=== PATIENT | male | born 1980 ===

== ENCOUNTER → 2020-05-29 09:30 | Outpatient (BNVA) | payer SELFPAY | PROVIDERS: Visit Provider Nurse Practitioner Family | DX: Z11.3 Encounter for screening for infections with a predominantly sexual mode of transmission (principal) | CPT/HCPCS: 80053; 80061; 82607; 83735; 84443; 85025; 86592; 86705; 86706; 86709; 86803; 87340; 87491; 87591; 87661; 87806 ==

== ENCOUNTER 2020-07-09 15:15 | Outpatient (CLI) | payer SELFPAY ==
--- NOTE | 2020-07-09 15:00 | US_ITS ---
WS: [id number] INDICATION: Palpable mass left side of neck TECHNIQUE: Ultrasound soft tissue area of concern FINDINGS: Ultrasound soft tissue area of concern left neck. Elongated ovoid lymph node with normal fa tty hilum. Lymph node measures approximately 1.0 x 2.2 x 0.3 CM. This has a benign appearance and is likely reactive. US/US soft tissue head neck [id number] IMPRESSION: Elongated ovoid lymph node with normal fatty hilum in the area of c oncern measuring 1.0 x 2.2 x 0.3cm
== END 2020-07-09 15:16 | disposition home or self-care (01) ==
LOC: RAD 15:19
PROVIDERS: PCP Nurse Practitioner Family; Visit Provider Nurse Practitioner Family
DX: R22.1 Localized swelling, mass and lump, neck
CPT/HCPCS: 76536

== ENCOUNTER → 2024-02-08 13:28 | Outpatient (BNVA) | payer OTHER, SELFPAY | PROVIDERS: PCP Nurse Practitioner Family; Visit Provider Nurse Practitioner Family | DX: Z13.6 Encounter for screening for cardiovascular disorders (principal); G43.009 Migraine without aura, not intractable, without status migrainosus; M79.601 Pain in right arm | CPT/HCPCS: 80053; 80061; 82607; 83735; 84443; 85025 ==

== ENCOUNTER 2024-10-12 08:20 | Emergency (ER) | payer BC, MEDICAID, SELFPAY ==
[2024-10-12 08:20] VITALS: BP 116/63; PULSE 71; RESP 12; TEMP 36.6; O2SAT 96
[2024-10-12 08:24] VITALS: BP 116/63; PULSE 65; RESP 17; O2SAT 96
[2024-10-12 08:30] VITALS: BP 116/63; PULSE 76; O2SAT 97
--- NOTE | 2024-10-12 08:45 | ED_ITS ---
HPI - Abdominal Pain 2 General: Chief Complaint: Abdominal Pain Stated Complaint: left flank pain Time Seen by Provider: 10/12/24 08:35 History of Present Illness: 44-year-old male presents emergency room with complaint of left flank pain began suddenly this morning denies any dysuria urgency or frequency. He has not had any hematuria. No history of nephrolithiasis in the past she did receive pain medications and route from EMS states this pain is pretty much resolved at this point Associated Symptoms: Denies chills, dysuria and fever(s) Related Data Home Medications Medication Instructions Recorded Confirmed ibuprofen 200 mg tablet (Advil) 600 mg PO Q6H PRN Pain 10/12/24 10/12/24 Previous Rx's Medication Instructions Recorded rizatriptan 10 mg tablet (Maxalt) See Rx Instructions PO .COMPLEX 02/08/24 #10 tabs Allergies Allergy/AdvReac Type Severity Reaction Status Date / Time acetaminophen [From Tylenol] Allergy Unknown Verified 10/12/24 08:26 Review of Systems 2 Const: Denies: fever(s) or chills Card: Denies: chest pain Resp: Denies: dyspnea GI: Denies: abdominal pain : Reports: flank pain; Denies: dysuria, urinary frequency or urinary urgency Musc: Denies: neck pain or back pain Skin/Breast: Denies: rash PFSH ED 2 PFSH: Medical History (Updated 10/12/24 @ 10:01 by Mich Celeste DO) No pertinent past medical history Surgical History Hx of hernia repair Social History Smoking and tobacco/nicotine status: current every day tobacco/nicotine user cigarettes Packs smoked per day: 1 Years cigarettes smoked: 15 Second hand smoke exposure: Yes Alcohol intake: never Substance/Drug Use: never Lives independently: Yes Household members: significant other Marital status: Life Partner service: Yes branch: [employer] Current occupational status: employed Current occupation: [employer] Current gender identity: Male Physical Exam 2 Const: ORIENTATION/CONSCIOUSNESS: Yes awake, Yes oriented to person, Yes oriented to place and Yes oriented to time HENMT: COMMON NORMALS: normocephalic, atraumatic and hearing grossly normal bilaterally HEAD & SCALP: normocephalic and atraumatic Resp: COMMON NORMALS: normal respiratory effort, No retractions, No use of accessory muscles and clear to auscultation bilaterally AUSCULTATION: clear to auscultation bilaterally Cardio: COMMON NORMALS: regular rate, regular rhythm and No murmurs present (Cardio) RATE: regular rate RHYTHM: regular rhythm GI: COMMON NORMALS: Soft to palpation and No hepatosplenomegaly present A USCULTATION: Yes normoactive bowel sounds PALPATION: Yes Soft to palpation, No Tenderness to palpation present (GI), No Guarding due to palpation present (GI) and Yes No hepatosplenomegaly present Extremity: COMMON NORMALS: normal to inspection, capillary refill normal, no clubbing, cyanosis or edema, no calf tenderness and no pedal edema Neuro: SENSORIUM/ORIENTATION: Yes oriented to person, Yes oriented to place and Yes oriented to time Skin: COMMON NORMALS: no rashes or lesions noted GENERAL SKIN EXAM: no rashes or lesions noted Course 2 Vital Signs: Vital signs: Vital Signs Temperature 97.9 F 10/12/24 08:20 Pulse Rate 80 10/12/24 10:11 Respiratory Rate 17 10/12/24 08:24 Blood Pressure 118/70 10/12/24 10:11 Pulse Oximetry 97 10/12/24 10:11 Oxygen Delivery Me thod Room Air 10/12/24 08:20 MDM - Abdominal Pain Medical Decision Making Hematuria with signs of hydronephrosis no signs of nephrolithiasis suspect patient has already passed a stone. His symptoms have resolved will discharge patient home have him strain his urine to follow-up with his primary care doctor return if has worsening or changes symptoms Medical Records I reviewed the patient's medical records. Lab Data I reviewed the patient's lab results. 10/12/24 08:49 10/12/24 08:49 Labs/Radiology: Radiology Impressions Abdomen/Pelvis CT 10/12/24 08:56 IMPRESSION: 1. No renal obstruction or hydronephrosis. 2. Bilateral nonobstructing renal calculi. 3. Small extrarenal pelvis versus minimal hydronephrosis on the LEFT. No associated calyceal dilatation. May potentially be residual mild hydronephrosis from passed stone. No ureteral calcifications identified. 4. Normal appendix. 5. No ascites. Laboratory Results WBC 10.18 10^3/uL (3.29-11.43) 10/12/24 08:49 RBC 4.85 10^6/uL (3.85-5.65) 10/12/24 08:49 Hgb 14.70 g/dL (11.27-16.99) 10/12/24 08:49 Hct 43.4 % (37-53) 10/12/24 08:49 MCV 89.5 fl (82-101) 10/12/24 08:49 MCH 30.3 pg (27-33) 10/12/24 08:49 MCHC 33.9 g/dL (30-55) 10/12/24 08:49 RDW 12.4 % (12.1-15.1) 10/12/24 08:49 Plt Count 233 10^3/cmm (157-399) 10/12/24 08:49 MPV 9.8 fL (7.4-10.4) 10/12/24 08:49 Neut % (Auto) 78.0 % 10/12/24 08:49 Lymph % (Auto) 12.9 % 10/12/24 08:49 [place] % (Auto) 5.6 % 10/12/24 08:49 Eos % (Auto) 2.3 % 10/12/24 08:49 Baso % (Auto) 0.7 % 10/12/24 08:49 Neut # (Auto) 7.95 10^3/uL (1.8-7.7) H 10/12/24 08:49 Lymph # (Auto) 1.3 10^3/uL (0.8-4.8) 10/12/24 08:49 [place] # (Auto) 0.6 10^3/uL (0.2-0.9) 10/12/24 08:49 Eos # (Auto) 0.2 10^3/uL (0.0-0.8) 10/12/24 08:49 Baso # (Auto) 0.1 10^3/uL (0.0-0.1) 10/12/24 08:49 Nucleated RBC % (auto) 0 % 10/12/24 08:49 Nucleated RBCs # 0.0 /100WBC 10/12/24 08:49 Sodium 136 mmol/L (136-145) 10/12/24 08:49 Potassium 3.4 mmol/L (3.5-5.1) L 10/12/24 08:49 Chloride 104 mmol/L (98-107) 10/12/24 08:49 Carbon Dioxide 22 mmol/L (22-29) 10/12/24 08:49 Anion Gap 13.4 (5-19) 10/12/24 08:49 BUN 9 mg/dL (6-20) 10/12/24 08:49 Creatinine 1.0 mg/dL (0.7-1.2) 10/12/24 08:49 GFR Calculation 80.8 mL/min (90-130) L 10/12/24 08:49 Glucose 135 mg/dL (65-115) H 10/12/24 08:49 Calculated Osmolality 283 mOsm/kg (285-295) L 10/12/24 08:49 Calcium 8.6 mg/dL (8.5-10.5) 10/12/24 08:49 Total Bilirubin 0.3 mg/dL (0.15-1.2) 10/12/24 08:49 AST 17 U/L (0-40) 10/12/24 08:49 ALT 26 U/L (0-41) 10/12/24 08:49 Alkaline Phosphatase 82 U/L (40-130) 10/12/24 08:49 Total Protein 6.4 g/dL (6.6-8.7) L 10/12/24 08:49 Albumin 3.9 g/dL (3.5-5.2) 10/12/24 08:49 Globulin 2.5 g/dL (1.3-4.6) 10/12/24 08:49 Urine Color Yellow (Yellow) 10/12/24 08:32 Urine Appearance Clear (CLEAR) 10/12/24 08:32 Urine pH 5.5 (5-7) 10/12/24 08:32 Ur Specific [place] 1.017 (1.005-1.030) 10/12/24 08:32 Urine Protein Trace (Negative) A 10/12/24 08:32 Urine Glucose (UA) Negative (Normal) 10/12/24 08:32 Urine Ketones Negative (Negative) 10/12/24 08:32 Urine Blood 3+ (Negative) A 10/12/24 08:32 Urine Nitrate Negative (Negative) 10/12/24 08:32 Urine Bilirubin Negative (Negative) 10/12/24 08:32 Urine Urobilinogen 1.0 mg/dL (Negative) 10/12/24 08:32 Ur Leukocyte Esterase Negative (Negative) 10/12/24 08:32 Urine RBC >100 /hpf (0-2) H 10/12/24 08:32 Urine WBC 0-5 /hpf (0-5) 10/12/24 08:32 Ur Squamous Epith Cells 0-5 /hpf (0-5) 10/12/24 08:32 Amorphous Sediment Not Reportable 10/12/24 08:32 Urine Bacteria None seen /hpf (NONE) 10/12/24 08:32 Hyaline Casts 0.81 /lpf 10/12/24 08:32 All radiology interpretation(s) finalized by discharge Discharge Plan Discharge Patient Disposition: Home Clinical Impression: Left nephrolithiasis Condition: Stable Prescriptions: No Action rizatriptan [Maxalt] 10 mg tablet See Rx Instructions PO .COMPLEX Qty: 10 2RF Rx Instructions: take 1 tab at onset of headache; if no relief may repeat 1 tab after at least 2 hrs; max = 3 tabs/24 hr PO ibuprofen [Advil] 200 mg Tablet 600 mg PO Q6H PRN (Reason: Pain) Discharge Orders: Discharge ED (Routine); Ordered 10/12/24 Ordered By: Mich Celeste Referrals: Barbara Manley FNP [Primary Care Provider] - Discharge Diet: Usual diet Discharge Activity: Resume usual activity Patient Instructions: Kidney Stones (ED), How to Strain Your Urine (ED), Opioid Safety, Pain Management Activity Restrictions/Additional Instructions: Thank you for choosing [facility] for your healthcare needs today. It is very important that you follow up as instructed or that you return to the Emergency Department should you have concerns or if your condition changes or worsens in any way. Seen in the emergency room with complaint of sudden onset of left flank pain. Based on the labs and imaging done it appears you had a kidney stone that is already passed to the bladder. Recommend straining a urine to see if his kidney stone can be retrieved for analyzing. There is no other kidney stones in the ureter at this time. 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
[2024-10-12 08:49] LABS: Bilirubin Urine Negative (Negative); Blood Urine 3+ (Negative); Glucose Urine UA Negative (Normal); Ketones Urine Negative (Negative); Leukocyte Esterase Urine Negative (Negative); Nitrate Urine Negative (Negative); Protein Urine Trace (Negative); Specific Gravity, Urine 1.017 (1.005-1.030); Urine Appearance Clear (CLEAR); Urine Color Yellow (Yellow); pH Urine 5.5 (5-7)
[2024-10-12 08:53] LABS: Basophils # 0.1 10^3/uL (0.0-0.1); Basophils % 0.7 %; Eosinophils # 0.2 10^3/uL (0.0-0.8); Eosinophils % 2.3 %; Hematocrit 43.4 % (37-53); Lymphocytes # 1.3 10^3/uL (0.8-4.8); Lymphocytes % 12.9 %; Mean Corpuscular HGB Conc 33.9 g/dL (30-55); Mean Corpuscular Hemoglobin 30.3 pg (27-33); Mean Corpuscular Volume 89.5 fl (82-101); Mean Platelet Volume 9.8 fL (7.4-10.4); Monocytes # 0.6 10^3/uL (0.2-0.9); Monocytes % 5.6 %; Neutrophils # 7.95 10^3/uL (1.8-7.7); Nucleated Red Blood Cells % 0 %; Platelet Count 233 10^3/cmm (157-399); Red Blood Count 4.85 10^6/uL (3.85-5.65); Red Cell Distribution Width 12.4 % (12.1-15.1); White Blood Count 10.18 10^3/uL (3.29-11.43)
[2024-10-12 08:54] LABS: Add Urine Microscopic? YES; Bacteria Urine None Seen /hpf; Hyaline Casts Urine 0.81 /lpf; RBC Urine >100 /hpf (0-2); Squamous Epithelial Cell Urine 0-5 /hpf (0-5); WBC Urine 0-5 /hpf (0-5)
--- NOTE | 2024-10-12 08:56 | CT_ITS ---
WS: [id number] CT ABDOMEN AND PELVIS NONCONTRAST HISTORY: flank pain, LEFT TECHNIQUE: Imaging performed through the abdomen and pelvis. Coronal and sagittal reformats are submi tted. All CT scans at [facility] use at least one of these dose optimization techniques: auto mated exposure control; mA and/or kV adjustment per patient size (includes targeted exams where dose is matched to clinical indication); or iterative reconstruction. DLP: 454.08 mGy.cm COMPARISON: None available. Lower thorax: Lung bases are clear. Visualized heart is normal. No hiatal hernia. Liver: Normal size liver. No mass or bile duct dilatation. Gallbladder: Normal gallbladder. No pericholecystic fluid or cholelithiasis. No gallbladder wall thic kening. Pancreas: Normal size and attenuation. Normal pancreatic duct. No pancreatitis or mass. Spleen: Normal. Adrenal glands: Normal. No mass. Right kidney: Normal size kidney with no mass or hydronephrosis. Nonobstructing calcification upper p ole measures 4.2 mm. Left kidney: Normal size kidney with no perinephric stranding. There is a small extrarenal pelvis sulema danna resolving minimal hydronephrosis. Normal size ureter. Nonobstructing calcification lower pole silvio sures 5 mm. Aorta: Normal abdominal aorta, no aneurysm or atherosclerosis. No free fluid, intraperitoneal air or significant lymphadenopathy. GI tract: Normal noncontrast imaging of the stomach, small bowel and colon. No obstruction or wall th ickening. Normal appendix. Appendix is measuring top normal size. Appendix does contain air and there is no adjacent inflammation. Abdominal wall: Small umbilical hernia contains fat only. Pelvis: No free fluid or adenopathy. Minimally distended urinary bladder. No calcifications in the ur inary bladder. Osseous structures: Unremarkable. CT/CT kidney stone [id number] IMPRESSION: 1. No renal obstruction or hydronephrosis. 2. Bilateral nonobstructing renal calculi. 3. Small extrarenal pelvis versus minimal hydronephrosis on the LEFT. No assoc iated calyceal dilatation. May potentially be residual mild hydronephrosis from passed stone. No ureteral calcifications identified. 4. Normal appendix. 5. No ascites.
[2024-10-12 09:00] VITALS: BP 111/71; PULSE 72; O2SAT 95
[2024-10-12 09:10] LABS: Alanine Aminotransferase 26 U/L (0-41); Albumin Level 3.9 g/dL (3.5-5.2); Alkaline Phosphatase 82 U/L (40-130); Anion Gap 13.4 (5-19); Aspartate Amino Transferase 17 U/L (0-40); Blood Urea Nitrogen 9 mg/dL (6-20); Calcium 8.6 mg/dL (8.5-10.5); Carbon Dioxide 22 mmol/L (22-29); Chloride 104 mmol/L (98-107); Creatinine Clr Calc Pharmacy 96.6683; Globulin 2.5 g/dL (1.3-4.6); Glomerular Filtration Rate 80.8 mL/min (90-130); Glucose 135 mg/dL (65-115); Osmolality Calculated 283 mOsm/kg (285-295); Potassium 3.4 mmol/L (3.5-5.1); Sodium 136 mmol/L (136-145); Total Bilirubin 0.3 mg/dL (0.15-1.2); Total Protein 6.4 g/dL (6.6-8.7)
[2024-10-12 09:16] LABS: Add Urine Culture? Yes
[2024-10-12 10:11] VITALS: BP 118/70; PULSE 80; O2SAT 97
== END 2024-10-12 10:13 | disposition home or self-care (01) ==
PROVIDERS: Emergency Provider Family Medicine; PCP Nurse Practitioner Family
DX: N20.0 Calculus of kidney (principal); F17.210 Nicotine dependence, cigarettes, uncomplicated
CPT/HCPCS: 74176; 80053; 81001; 85025; 87086; 99284

== ENCOUNTER 2025-01-06 08:54 | Emergency (ER) | payer BC, MEDICAID, SELFPAY ==
[2025-01-06 09:00] VITALS: BP 146/81; PULSE 61; RESP 18; TEMP 36.7; O2SAT 96; BMI 26.6
--- NOTE | 2025-01-06 09:01 | CTR_ITS ---
PROCEDURE INFORMATION: Exam: CT Abdomen And Pelvis Without Contrast Exam date and time: 01/06/2025 9:30 AM Age: 44 years old Clinical indication: Abdominal pain; Flank; Right; Additional info: R flank pain TECHNIQUE: Imaging protocol: Computed tomography of the abdomen and pelvis without contrast. Radiation optimization: All CT scans at this facility use at least one of these dose optimization techniques: automated exposure control; mA and/or kV adjustment per patient size (includes targeted exams where dose is matched to clinical indication); or iterative reconstruction. COMPARISON: CT kidney stone [id number] 10/12/2024 9:15 AM RADIATION DOSE METRICS: Total DLP (mGy-cm): 467.19 FINDINGS: Diaphragm: Small hiatal hernia. Liver: Normal. No mass. Gallbladder and biliary ducts: Normal. No calcified stones. No ductal dilation. Pancreas: Normal. No ductal dilation. Spleen: Normal. No splenomegaly. Adrenal glands: Normal. No mass. Kidneys and ureters: left distal ureteral 3 mm stone. No hydronephrosis or hydroureter seen on the left side. There is a right proximal 2 mm obstructing ureteral stone associated with mild hydronephrosis and right perinephric stranding changes. Stomach and bowel: diffuse scattered colonic diverticulosis. No dilated small bowel loop. Appendix: Appendix is normal. Intraperitoneal space: Unremarkable. No free air. No significant fluid collection. Vasculature: Unremarkable. No abdominal aortic aneurysm. Lymph nodes: Unremarkable. No enlarged lymph nodes. Urinary bladder: Unremarkable as visualized. Reproductive: Unremarkable as visualized. Bones/joints: Intervertebral disc narrowing at L5-S1 level. Soft tissues: Unremarkable. CT/CT kidney stone [id number] IMPRESSION: 1. Right proximal 2 mm obstructing ureteral stone associated with mild hydronephrosis. 2. Left distal ureteral 3 mm stone. This does not appear to cause obstruction. 3. Small hiatal hernia. 4. Diffuse scattered colonic diverticulosis. 5. Intervertebral disc narrowing at L5-S1 level.
--- NOTE | 2025-01-06 09:01 | ED_ITS ---
HPI - Abdominal Pain 2 General: Chief Complaint: Abdominal Pain Stated Complaint: right flank pain Time Seen by Provider: 01/06/25 08:56 Source: patient Mode of arrival: ambulatory Limitations: no limitations History of Present Illness: 44-year-old male who states that he has had right flank pain since yesterday. States been a sharp pain rates 9-10 states had some problems urinating along with vomiting as well. He denies any worsening improving factors he had had a history of kidney stone in the past denies any abdominal pain. Denies any testicle pain Associated Symptoms: Reports nausea and vomiting; Denies chills, diarrhea, dysuria and fever(s) Related Data Previous Rx's ?Medication ?Instructions ?Recorded hydrocodone 5 mg-acetaminophen 325 1 tab PO Q6H PRN pa in #14 tabs 01/06/25 mg tablet ondansetron 4 mg disintegrating 4 mg PO Q6H PRN nausea and 01/06/25 tablet vomiting #14 tabs tamsulosin 0.4 mg capsule (Flomax) 0.4 mg PO DAILY #5 caps 01/06/25 Allergies Allergy/AdvReac Type Severity Reaction Status Date / Time acetaminophen (From Tylenol) Allergy Unknown Verified 10/12/24 08:26 Review of Systems 2 Const: Denies: fever(s), chills, body aches or change in appetite ENMT: Denies: throat pain or dental pain Card: Denies: chest pain Resp: Denies: dyspnea GI: Reports: nausea and vomiting; Denies: abdominal pain or diarrhea : Reports: flank pain; Denies: dysuria Musc: Denies: neck pain or back pain Skin/Breast: Denies: rash Neuro: Denies: headache(s) PFSH ED 2 PFSH: Medical History (Updated 01/06/25 @ 10:20 by Tushar Lopez MD) No pertinent past medical history Surgical History Hx of hernia repair Social History Smoking and tobacco/nicotine status: current every day tobacco/nicotine user cigarettes Packs smoked per day: 1 Years cigarettes smoked: 15 Second hand smoke exposure: Yes Alcohol intake: never Substance/Drug Use: never Lives independently: Yes Household members: significant other Marital status: Life Partner service: Yes branch: [employer] Current occupational status: employed Current occupation: [employer] Current gender identity: Male Physical Exam 2 Const: COMMON NORMALS: no acute distress, patient oriented x3 and healthy appearing HENMT: COMMON NORMALS: normocephalic and atraumatic HEAD & SCALP: n ormocephalic and atraumatic Eye: COMMON NORMALS: conjunctivae normal CONJUNCTIVA: Yes conjunctivae normal Neck/C-Spine: COMMON NORMALS: full ROM and supple Chest: COMMONS NORMALS: normal inspection of the chest Resp: COMMON NORMALS: normal respiratory effort Cardio: COMMON NORMALS: regular rate, regular rhythm and No murmurs present (Cardio) RATE: regular rate RHYTHM: regular rhythm GI: COMMON NORMALS: Normal to inspection, nondistended, normoactive bowel sounds present, Soft to palpation, non-tender and no masses PALPATION: Yes Soft to palpation Back/Pelvis: OTHER: Tenderness noted to right lower back Extremity: COMMON NORMALS: normal to inspection and full ROM Neuro: COMMON NORMALS: patient oriented x3, moves all extremities and no focal motor deficits Psych: COMMON NORMALS: mental status grossly normal, Normal thought process present and cooperative THOUGHT PROCESS: Normal thought process present Skin: COMMON NORMALS: no rashes or lesions noted and no wounds GENERAL SKIN EXAM: no rashes or lesions noted Course 2 Vital Signs: Vital signs: Vital Signs Temperature 98.0 F 01/06/25 09:00 Pulse Rate 52 L 01/06/25 09:21 Respiratory Rate 18 01/06/25 09:00 Blood Pressure 148/81 01/06/25 09:21 Pulse Oximetry 98 01/06/25 09:21 Oxygen Delivery Me thod Room Air 01/06/25 09:21 MDM - Abdominal Pain Medical Decision Making Patient presents here with kidney stone CT scan here shows a stone his pain is much improved he has no signs UTI we will give him follow-up with urology will DC him with a strainer along with pain meds he is to follow-up and return if worsening. Medical Records I reviewed the patient's medical records. Lab Data I reviewed the patient's lab results. 01/06/25 09:04 01/06/25 09:04 Labs/Radiology: Radiology Impressions Abdomen/Pelvis CT 01/06/25 09:01 IMPRESSION: 1. Right proximal 2 mm obstructing ureteral stone associated with mild hydronephrosis. 2. Left distal ureteral 3 mm stone. This does not appear to cause obstruction. 3. Small hiatal hernia. 4. Diffuse scattered colonic diverticulosis. 5. Intervertebral disc narrowing at L5-S1 level. Laboratory Results WBC 14.87 10^3/uL (3.29-11.43) H 01/06/25 09:04 RBC 5.03 10^6/uL (3.85-5.65) 01/06/25 09:04 Hgb 15.30 g/dL (11.27-16.99) 01/06/25 09:04 Hct 44.1 % (37-53) 01/06/25 09:04 MCV 87.7 fl (82-101) 01/06/25 09:04 MCH 30.4 pg (27-33) 01/06/25 09:04 MCHC 34.7 g/dL (30-55) 01/06/25 09:04 RDW 12.8 % (12.1-15.1) 01/06/25 09:04 Plt Count 312 10^3/cmm (157-399) 01/06/25 09:04 MPV 9.8 fL (7.4-10.4) 01/06/25 09:04 Neut % (Auto) 75.7 % 01/06/25 09:04 Lymph % (Auto) 16.7 % 01/06/25 09:04 [place] % (Auto) 5.8 % 01/06/25 09:04 Eos % (Auto) 0.8 % 01/06/25 09:04 Baso % (Auto) 0.7 % 01/06/25 09:04 Neut # (Auto) 11.25 10^3/uL (1.8-7.7) H 01/06/25 09:04 Lymph # (Auto) 2.5 10^3/uL (0.8-4.8) 01/06/25 09:04 [place] # (Auto) 0.9 10^3/uL (0.2-0.9) 01/06/25 09:04 Eos # (Auto) 0.1 10^3/uL (0.0-0.8) 01/06/25 09:04 Baso # (Auto) 0.1 10^3/uL (0.0-0.1) 01/06/25 09:04 Nucleated RBC % (auto) 0 % 01/06/25 09:04 Nucleated RBCs # 0.0 /100WBC 01/06/25 09:04 Sodium 141 mmol/L (136-145) 01/06/25 09:04 Potassium 3.7 mmol/L (3.5-5.1) 01/06/25 09:04 Chloride 107 mmol/L (98-107) 01/06/25 09:04 Carbon Dioxide 21 mmol/L (22-29) L 01/06/25 09:04 Anion Gap 16.7 (5-19) 01/06/25 09:04 BUN 15 mg/dL (6-20) 01/06/25 09:04 Creatinine 1.0 mg/dL (0.7-1.2) 01/06/25 09:04 GFR Calculation 80.8 mL/min (90-130) L 01/06/25 09:04 Glucose 127 mg/dL (65-115) H 01/06/25 09:04 Calculated Osmolality 294 mOsm/kg (285-295) 01/06/25 09:04 Calcium 9.5 mg/dL (8.5-10.5) 01/06/25 09:04 Total Bilirubin 0.6 mg/dL (0.15-1.2) 01/06/25 09:04 AST 19 U/L (0-40) 01/06/25 09:04 ALT 23 U/L (0-41) 01/06/25 09:04 Alkaline Phosphatase 81 U/L (40-130) 01/06/25 09:04 Total Protein 7.5 g/dL (6.6-8.7) 01/06/25 09:04 Albumin 4.5 g/dL (3.5-5.2) 01/06/25 09:04 Globulin 3.0 g/dL (1.3-4.6) 01/06/25 09:04 Lipase 15 U/L (13-60) 01/06/25 09:04 Urine Color Yellow (Yellow) 01/06/25 09:46 Urine Appearance Clear (CLEAR) 01/06/25 09:46 Urine pH 5.5 (5-7) 01/06/25 09:46 Ur Specific [place] 1.020 (1.005-1.030) 01/06/25 09:46 Urine Protein Trace (Negative) A 01/06/25 09:46 Urine Glucose (UA) Negative (Normal) 01/06/25 09:46 Urine Ketones Trace (Negative) 01/06/25 09:46 Urine Blood 3+ (Negative) A 01/06/25 09:46 Urine Nitrate Negative (Negative) 01/06/25 09:46 Urine Bilirubin Negative (Negative) 01/06/25 09:46 Urine Urobilinogen 1.0 mg/dL (Negative) 01/06/25 09:46 Ur Leukocyte Esterase Negative (Negative) 01/06/25 09:46 Urine RBC 21-50 /hpf (0-2) H 01/06/25 09:46 Urine WBC 0-5 /hpf (0-5) 01/06/25 09:46 Ur Squamous Epith Cells 0-5 /hpf (0-5) 01/06/25 09:46 Amorphous Sediment Not Reportable 01/06/25 09:46 Urine Bacteria None seen /hpf (NONE) 01/06/25 09:46 Hyaline Casts 1.21 /lpf 01/06/25 09:46 All radiology interpretation(s) finalized by discharge Discharge Plan Discharge Patient Disposition: Home Clinical Impression: Kidney stone Condition: Stable Prescriptions: New hydrocodone-acetaminophen 5-325 mg tablet 1 tab PO Q6H PRN (Reason: pain) Qty: 14 0RF ondansetron 4 mg tablet,disintegrating 4 mg PO Q6H PRN (Reason: nausea and vomiting) Qty: 14 0RF tamsulosin [Flomax] 0.4 mg capsule 0.4 mg PO DAILY Qty: 5 0RF Discharge Orders: Discharge ED (Routine); Ordered 01/06/25 Ordered By: Tushar Lopez Referrals: Barbara Manley FNP [Primary Care Provider] - Discharge Diet: Advance as tolerated Discharge Activity: Resume usual activity Patient Instructions: Kidney Stones (ED), Opioid Safety Print Language: Amharic Coding Level of Care Code 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
[2025-01-06 09:12] LABS: Basophils # 0.1 10^3/uL (0.0-0.1); Basophils % 0.7 %; Eosinophils # 0.1 10^3/uL (0.0-0.8); Eosinophils % 0.8 %; Hematocrit 44.1 % (37-53); Lymphocytes # 2.5 10^3/uL (0.8-4.8); Lymphocytes % 16.7 %; Mean Corpuscular HGB Conc 34.7 g/dL (30-55); Mean Corpuscular Hemoglobin 30.4 pg (27-33); Mean Corpuscular Volume 87.7 fl (82-101); Mean Platelet Volume 9.8 fL (7.4-10.4); Monocytes # 0.9 10^3/uL (0.2-0.9); Monocytes % 5.8 %; Neutrophils # 11.25 10^3/uL (1.8-7.7); Neutrophils % 75.7 %; Nucleated Red Blood Cells % 0 %; Platelet Count 312 10^3/cmm (157-399); Red Blood Count 5.03 10^6/uL (3.85-5.65); Red Cell Distribution Width 12.8 % (12.1-15.1); White Blood Count 14.87 10^3/uL (3.29-11.43)
[2025-01-06] MEDS: ondansetron 2 mg/ML SDV 2 mL 4 MG IVP (09:17)
[2025-01-06] MEDS: ketorolac 30 mg/mL INJ IVP (09:18)
[2025-01-06] MEDS: morphine 4 mg/mL SDV 1 mL IVP (09:18)
[2025-01-06 09:21] VITALS: BP 148/81; PULSE 52; O2SAT 98
[2025-01-06 09:28] LABS: Alanine Aminotransferase 23 U/L (0-41); Albumin Level 4.5 g/dL (3.5-5.2); Alkaline Phosphatase 81 U/L (40-130); Anion Gap 16.7 (5-19); Aspartate Amino Transferase 19 U/L (0-40); Blood Urea Nitrogen 15 mg/dL (6-20); Calcium 9.5 mg/dL (8.5-10.5); Carbon Dioxide 21 mmol/L (22-29); Chloride 107 mmol/L (98-107); Creatinine Clr Calc Pharmacy 93.0266; Glomerular Filtration Rate 80.8 mL/min (90-130); Glucose 127 mg/dL (65-115); Lipase 15 U/L (13-60); Osmolality Calculated 294 mOsm/kg (285-295); Potassium 3.7 mmol/L (3.5-5.1); Sodium 141 mmol/L (136-145); Total Bilirubin 0.6 mg/dL (0.15-1.2); Total Protein 7.5 g/dL (6.6-8.7)
[2025-01-06 09:51] LABS: Bilirubin Urine Negative (Negative); Blood Urine 3+ (Negative); Glucose Urine UA Negative (Normal); Ketones Urine Trace (Negative); Leukocyte Esterase Urine Negative (Negative); Nitrate Urine Negative (Negative); Protein Urine Trace (Negative); Urine Appearance Clear (CLEAR); Urine Color Yellow (Yellow); pH Urine 5.5 (5-7)
[2025-01-06 09:56] LABS: Add Urine Microscopic? YES; Bacteria Urine None Seen /hpf; Hyaline Casts Urine 1.21 /lpf; RBC Urine 21-50 /hpf (0-2); Squamous Epithelial Cell Urine 0-5 /hpf (0-5); WBC Urine 0-5 /hpf (0-5)
[2025-01-06 09:57] LABS: Add Urine Culture? Yes
[2025-01-06 10:32] VITALS: BP 131/79; PULSE 54; O2SAT 97
== END 2025-01-06 10:35 | disposition home or self-care (01) ==
PROVIDERS: Emergency Provider Emergency Medicine; PCP Nurse Practitioner Family
DX: N20.0 Calculus of kidney (principal); F17.210 Nicotine dependence, cigarettes, uncomplicated
CPT/HCPCS: 74176; 80053; 81001; 83690; 85025; 87086; 96374; 96375; 99285; J1885; J2270; J2405